=== PATIENT | male | born 1940 | race Caucasian/White ===

== ENCOUNTER → 2017-06-22 | Day surgery (SDC) | payer MEDICARE ==
[~2017-06-22] MED LIST: DEXAMETHASONE SOD PHOS 4 MG/ML VIAL ONE; DEXTROSE 50% IN WATER 50 ML SYRINGE ONE; EPINEPHrine HCL (1:1000) 1 MG/ML VIAL ONE; GLYB1TAB50 PO; LACTATED RINGER'S 1000 ML INJ 1,000 ML ONE; LISIN; MIDAZOLAM HCL 2 MG/2 ML VIAL ONE; MOXIFLOXACIN 0.5% OPHT SOLN 3 ML BTL ONE; ONDANSETRON HCL 4 MG/2 ML VIAL IV PUSH ONE; PHENYLEPHRINE HCL 10% OPTH SOLN 5 ML BTL ONE; PROPOFOL 200 MG/20 ML AMP IV ONE; ROSU40 PO; SODIUM CHLORIDE 0.9% INJ 10 ML ONE; TETRACAINE 0.5% OPTH SOLN 4 ML BTL ONE; TOBRAMYCIN/DEXAMETHASONE OPTH OINT 3.5 GM TUBE ONE; TRIAMCINOLONE ACETONIDE 40 MG/ML VIAL ONE; ceFAZolin INJ 1,000 MG VIAL ONE; metform; prednisoLONE ACETATE 1% OPHT SUSP 5 ML BTL ONE
--- NOTE | 2017-06-28 10:22 | MP ---
cc: Franki Krishnan MD DATE OF OPERATION: 06/22/2017 PREOPERATIVE DIAGNOSIS: Epiretinal membrane, metamorphopsia, retinal distortion, right eye. POSTOPERATIVE DIAGNOSIS: Epiretinal membrane, metamorphopsia, retinal distortion, right eye. PROCEDURE PERFORMED: Pars vitrectomy, removal of internal limiting membrane/epiretinal membrane, endolaser, insertion of intravitreal Kenalog, right eye. COMPLICATIONS: None. ESTIMATED BLOOD LOSS: Less than 1 mL. ANESTHESIA: Dr. Rodriguez, general. 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 The patient elected for surgical correction, understanding risks, benefits and alternatives. PROCEDURE NOTE: After informed consent was obtained, the patient was brought to the operating room, general anesthesia was established. The right eye was prepped and draped in sterile fashion. Betadine in the conjunctival fornix. A 3-port pars plana vitrectomy was established with a self-retaining infusion cannula. Core vitreous was evacuated along with peripheral vitreous traction. The ERM/ILM complex was highlighted with ICG and removed with alcohol and ILM forceps. The retina had renewed mobility and improved contour. A scleral depression examination revealed areas of retinal weakening supratemporal and supranasal, which were lightly treated with endolaser. No retinal holes, or detachments were seen. Intravitreal Kenalog was instilled. Trocar was removed and the sclerotomies closed. Subconjunctival injection of Ancef, dexamethasone were given. Eyes patched with tobramycin ointment. The patient was brought to the recovery room in stable condition and continue with followup at [facility] for his postoperative care. MD LOVELY Wilson/TALI , 09:43 PM , 12:01 AM
== END | disposition home or self-care (01) ==
LOC: ESDC 05:59
PROVIDERS: ATTEND Ophthalmology
DX: H35.371 Puckering of macula, right eye (principal); H53.15 Visual distortions of shape and size; H35.071 Retinal telangiectasis, right eye; E11.9 Type 2 diabetes mellitus without complications; Z79.84 Long term (current) use of oral hypoglycemic drugs
CPT/HCPCS: 00145; 67042; 82948; J0171; J0690; J1100; J2250; J2405; J3010; J3301; J7120